=== PATIENT | female | born 1955 | race Caucasian/White ===

== ENCOUNTER 2018-09-24 00:01 | Inpatient (IN) | payer OTHER ==
[2018-09-24 00:04] VITALS: BMI 34.7
[2018-09-24] MEDS ORDERED: Aspirin 325 mg EC Tablets PO STA (00:43)
--- NOTE | 2018-09-24 00:43 | C.PDOC ---
History Of Present Illness 63 year old female presents to the ED c/o diffuse body aches, headache, chest pain that started today. Patient denies fever, chills, nausea, vomit, diarrhea, rash, SOB, weakness, numbness. Time Seen by Provider: 09/24/18 00:42 Chief Complaint (Nursing): Chest Pain History Per: Patient History/Exam Limitations: no limitations Onset/Duration Of Symptoms: Days Current Symptoms Are (Timing): Still Present Quality: "Pain" Recent travel outside of the [place]: No Additional History Per: Patient Past Medical History Reviewed: Historical Data, Nursing Documentation, Vital Signs Vital Signs: Last Vital Signs Temp 98.4 F 09/24/18 00:09 Pulse 96 H 09/24/18 00:09 Resp 16 09/24/18 00:09 BP 138/80 09/24/18 00:09 Pulse Ox 100 09/24/18 00:09 - Medical History PMH: HTN Denies: Depression Surgical History: No Surg Hx - [facility] Procedures INJECT/INFUSE NEC (01/28/14) Family History: States: Unknown Family Hx - Social History Hx Alcohol Use: No Hx Substance Use: No - Immunization History Hx Tetanus Toxoid Vaccination: No Hx Influenza Vaccination: No Hx Pneumococcal Vaccination: No Review Of Systems Constitutional: Positive for: Malaise. Negative for: Fever, Chills Cardiovascular: Positive for: Chest Pain. Negative for: Palpitations Respiratory: Negative for: Cough, Shortness of Breath Gastrointestinal: Negative for: Nausea, Vomiting, Abdominal Pain Skin: Negative for: Rash Neurological: Positive for: Headache. Negative for: Weakness, Numbness, Dizziness Physical Exam - Physical Exam Appears: Non-toxic, No Acute Distress Skin: Warm, Dry Head: Normacephalic Eye(s): bilateral: Normal Inspection Neck: Supple Chest: Symmetrical Cardiovascular: Rhythm Regular Respiratory: No Rales, Rhonchi (scattered), No Wheezing Gastrointestinal/Abdominal: Soft, No Tenderness, No Guarding, No Rebound Extremity: Bilateral: Atraumatic, Normal Color And Temperature, Normal ROM Neurological/Psych: Oriented x3, Normal Speech, Normal Cognition Gait: Steady ED Course And Treatment - Laboratory Results Result Diagrams: 09/24/18 01:05 09/24/18 01:05 ECG: Interpreted By Me, Viewed By Me ECG Rhythm: Sinus Rhythm (88), Nonspecific Changes O2 Sat by Pulse Oximetry: 100 (ON RA) Pulse Ox Interpretation: Normal - Radiology CXR: Interpreted by Me, Viewed By Me Progress Note: Plan: - EKG. - CXR. - Labs. - Aspirin 325 mg PO. - Influenza A B. - UA Disposition Discussed With Dr.: Angelo Block Comment: accepted the pt on his service and took over the care at 5:50 AM Doctor Will See Patient In The: Hospital Counseled Patient/Family Regarding: Studies Performed, Diagnosis - Disposition Disposition: HOSPITALIZED Disposition Time: 05:50 Condition: FAIR Forms: [employer] (Portuguese) - Clinical Impression Clinical Impression: Chest pain - Scribe Statement The provider has reviewed the documentation as recorded by the Scribe Jose Armando Abrams All medical record entries made by the Scribe were at my direction and personally dictated by me. I have reviewed the chart and agree that the record accurately reflects my personal performance of the history, physical exam, medical decision making, and the department course for this patient. I have also personally directed, reviewed, and agree with the discharge instructions and disposition. Decision To Admit - Pt Status Changed To: Hospital Disposition Of: Observation - . Bed Request Type: Telemetry Admitting Physician: Angelo Block Patient Diagnosis: Chest pain
[2018-09-24 01:15] LABS: INR 1.2; PROTHROMBIN TIME 12.7 SECONDS (9.7-12.2)
[2018-09-24 01:16] LABS: BASO # 0.1 K/uL (0.0-0.2); BASO % 0.4 % (0.0-2.0); EOS # 0.1 K/uL (0.0-0.7); EOS % 0.6 % (0.0-4.0); HEMOGLOBIN 12.5 g/dL (11.0-16.0); LYMPH # 1.4 K/uL (1.0-4.3); LYMPH % 11.4 % (20.0-40.0); MEAN CELL VOLUME 82.3 fL (81.0-99.0); MEAN CORPUSCULAR HEMOGLOBIN 27.3 pg (27.0-31.0); MEAN CORPUSCULAR HGB CONC 33.2 g/dL (33.0-37.0); MEAN PLATELET VOLUME 9.7 fL (7.2-11.7); MONO # 0.9 K/uL (0.0-0.8); MONO % 7.5 % (0.0-10.0); NEUT # 9.9 K/uL (1.8-7.0); NEUT % 80.1 % (50.0-75.0); RBC 4.58 Mil/uL (3.80-5.20); RED CELL DISTRIBUTION WIDTH 13.4 % (11.5-14.5); WHITE BLOOD COUNT 12.3 K/uL (4.8-10.8)
[2018-09-24 01:26] LABS: ALB/GLOB RATIO 1.1 (1.0-2.1); ALBUMIN 4.4 g/dL (3.5-5.0); BLOOD UREA NITROGEN 14 mg/dL (7-17); CALCIUM 8.9 mg/dl (8.6-10.4); GFR NON-AFRICAN AMERICAN > 60; LIPASE 25 U/L (23-300)
[2018-09-24 01:38] LABS: B-TYPE NATRIURETIC PEPTIDE 114 pg/mL (0-900)
[2018-09-24 01:46] LABS: ALT/SGPT < 6 U/L (9-52); AST/SGOT 24 U/L (14-36)
[2018-09-24] MEDS: Enoxaparin 40 mg Syringe SC SCH (09:51)
--- NOTE | 2018-09-24 10:55 | RAD ---
Date of service: 09/24/2018 HISTORY: chest pain COMPARISON: None available. FINDINGS: LUNGS: No active pulmonary disease. PLEURA: No significant pleural effusion identified, no pneumothorax apparent. CARDIOVASCULAR: No aortic atherosclerotic calcification present. Cardiomegaly noted. No pulmonary vascular congestion. OSSEOUS STRUCTURES: No significant abnormalities. VISUALIZED UPPER ABDOMEN: Normal. OTHER FINDINGS: None. IMPRESSION: Cardiomegaly. No acute pulmonary disease appreciable. No pulmonary vascular congestion.
[2018-09-24 12:17] LABS: CK-MB < 0.22 ng/mL (0.0-3.38)
[2018-09-24 16:37] LABS: URINE BACTERIA RARE (<OCC); URINE BILIRUBIN NEGATIVE (NEGATIVE); URINE BLOOD NEGATIVE (NEGATIVE); URINE CLARITY Clear (Clear); URINE COLOR Yellow (YELLOW); URINE GLUCOSE (UA) NORMAL (Normal); URINE LEUKOCYTE ESTERASE NEG Leu/uL (Negative); URINE PROTEIN NEGATIVE (NEGATIVE); URINE UROBILINOGEN NORMAL mg/dL (0.2-1.0)
[2018-09-24] MEDS ORDERED: cefTRIAXone IV 1 gm in Dextros 50 ML IVPB ONE (17:00)
[2018-09-24] MEDS: guaiFENesin 600 mg ER Tab PO SCH (17:01)
[2018-09-24] MEDS ORDERED: Azithromycin 500 MG in Sodium Chloride 0.9% 250 ML IVPB ONE (17:30)
--- NOTE | 2018-09-24 19:58 | CP.PCM.HP ---
History of Present Illness - History of Present Illness History of Present Illness: patient presents at the [facility] emergency room complaining of chest pain, headache and cough for the past 6 hours. Patient denies fever or nausea. She completed a full day's work and upon arriving home developed chest pain and headache. patient was evaluated by the emergency room staff and an EKG did not manifest any acute changes. Chest pain and headache persisted and patient was admitted for observation. Troponin levels were ordered and a consult with cardiology was requested. Present on Admission - Present on Admission Any Indicators Present on Admission: No History of DVT/PE: No History of Uncontrolled Diabetes: No Urinary Catheter: No Decubitus Ulcer Present: No History Surgical Site Infection Following: None Review of Systems - Review of Systems Systems not reviewed;Unavailable: Other (chest pain) - Constitutional Constitutional: Headache - Cardiovascular Cardiovascular: Chest Pain - Respiratory Respiratory: Cough - Reproductive: Female Reproductive:Female: Post Menopausal - Integumentary Integumentary: Dry Skin - Neurological Neurological: Headaches Past Patient History - Tetanus Immunizations Tetanus Immunization: Up to Date - Past Social History Smoking Status: Never Smoked Chewing Tobacco Use: No Alcohol: None Drugs: Denies Domestic Violence: Negative - CARDIAC Hx Hypertension: Yes - MUSCULOSKELETAL/RHEUMATOLOGICAL Hx Arthritis: Yes - PSYCHIATRIC Hx Depression: No Hx Substance Use: No Meds Allergies/Adverse Reactions: Allergies Allergy/AdvReac Type Severity Reaction Status Date / Time No Known Allergies Allergy Verified 09/24/18 00:11 Physical Exam - Constitutional Appears: No Acute Distress - Head Exam Head Exam: ATRAUMATIC - Eye Exam Eye Exam: Normal appearance Pupil Exam: NORMAL ACCOMODATION - ENT Exam ENT Exam: Normal Exam - Neck Exam Neck exam: Positive for: Normal Inspection - Respiratory Exam Respiratory Exam: NORMAL BREATHING PATTERN - Cardiovascular Exam Cardiovascular Exam: REGULAR RHYTHM - GI/Abdominal Exam GI & Abdominal Exam: Normal Bowel Sounds - Rectal Exam Rectal Exam: Deferred - Exam External exam: NORMAL EXTERNAL EXAM - Extremities Exam Extremities exam: Positive for: tenderness (left shoulder tenderness) - Back Exam Back exam: NORMAL INSPECTION - Neurological Exam Neurological exam: Oriented x3 - Psychiatric Exam Psychiatric exam: Anxious - Skin Skin Exam: Dry Results - Vital Signs Recent Vital Signs: Last Vital Signs Temp 99.4 F 09/24/18 16:00 Pulse 96 H 09/24/18 17:58 Resp 20 09/24/18 16:00 BP 169/87 H 09/24/18 16:00 Pulse Ox 95 09/24/18 16:00 - Labs Result Diagrams: 09/24/18 01:05 09/24/18 01:05 Labs: Laboratory Results - last 24 hr 09/24/18 09/24/18 09/24/18 01:05 01:05 01:05 WBC 12.3 H RBC 4.58 Hgb 12.5 Hct 37.7 MCV 82.3 MCH 27.3 MCHC 33.2 RDW 13.4 Plt Count 231 MPV 9.7 Neut % (Auto) 80.1 H Lymph % (Auto) 11.4 L [place] % (Auto) 7.5 Eos % (Auto) 0.6 Baso % (Auto) 0.4 Neut # (Auto) 9.9 H Lymph # (Auto) 1.4 [place] # (Auto) 0.9 H Eos # (Auto) 0.1 Baso # (Auto) 0.1 PT 12.7 H INR 1.2 APTT 33 Sodium 135 Potassium 4.2 Chloride 102 Carbon Dioxide 24 Anion Gap 13 BUN 14 Creatinine 0.7 Est GFR ( Amer) > 60 Est GFR (Non-Af Amer) > 60 Random Glucose 112 H Calcium 8.9 Total Bilirubin 0.9 AST 24 ALT < 6 L Alkaline Phosphatase 90 Total Creatine Kinase CK-MB (Mass) Troponin I < 0.0120 NT-Pro-B Natriuret Pep 114 Total Protein 8.3 Albumin 4.4 Globulin 3.9 Albumin/Globulin Ratio 1.1 Lipase 25 Urine Color Urine Clarity Urine pH Ur Specific [place] Urine Protein Urine Glucose (UA) Urine Ketones Urine Blood Urine Nitrate Urine Bilirubin Urine Urobilinogen Ur Leukocyte Esterase Urine WBC (Auto) Urine RBC (Auto) Urine Bacteria Influenza Typ A,B (EIA) 09/24/18 09/24/18 09/24/18 01:10 04:45 11:33 WBC RBC Hgb Hct MCV MCH MCHC RDW Plt Count MPV Neut % (Auto) Lymph % (Auto) [place] % (Auto) Eos % (Auto) Baso % (Auto) Neut # (Auto) Lymph # (Auto) [place] # (Auto) Eos # (Auto) Baso # (Auto) PT INR APTT Sodium Potassium Chloride Carbon Dioxide Anion Gap BUN Creatinine Est GFR ( Amer) Est GFR (Non-Af Amer) Random Glucose Calcium Total Bilirubin AST ALT Alkaline Phosphatase Total Creatine Kinase 39 CK-MB (Mass) < 0.22 Troponin I < 0.0120 < 0.0120 NT-Pro-B Natriuret Pep Total Protein Albumin Globulin Albumin/Globulin Ratio Lipase Urine Color Urine Clarity Urine pH Ur Specific [place] Urine Protein Urine Glucose (UA) Urine Ketones Urine Blood Urine Nitrate Urine Bilirubin Urine Urobilinogen Ur Leukocyte Esterase Urine WBC (Auto) Urine RBC (Auto) Urine Bacteria Influenza Typ A,B (EIA) Negative for flu a/b 09/24/18 09/24/18 14:13 16:30 WBC RBC Hgb Hct MCV MCH MCHC RDW Plt Count MPV Neut % (Auto) Lymph % (Auto) [place] % (Auto) Eos % (Auto) Baso % (Auto) Neut # (Auto) Lymph # (Auto) [place] # (Auto) Eos # (Auto) Baso # (Auto) PT INR APTT Sodium Potassium Chloride Carbon Dioxide Anion Gap BUN Creatinine Est GFR ( Amer) Est GFR (Non-Af Amer) Random Glucose Calcium Total Bilirubin AST ALT Alkaline Phosphatase Total Creatine Kinase CK-MB (Mass) Troponin I < 0.0120 NT-Pro-B Natriuret Pep Total Protein Albumin Globulin Albumin/Globulin Ratio Lipase Urine Color Yellow Urine Clarity Clear Urine pH 5.0 Ur Specific [place] 1.017 Urine Protein Negative Urine Glucose (UA) Normal Urine Ketones Negative Urine Blood Negative Urine Nitrate Negative Urine Bilirubin Negative Urine Urobilinogen Normal Ur Leukocyte Esterase Neg Urine WBC (Auto) < 1 Urine RBC (Auto) 1 Urine Bacteria Rare Influenza Typ A,B (EIA) Assessment & Plan (1) Cough Status: Acute (2) Migraine Status: Acute (3) Chest pain Status: Acute (4) Bursitis of left shoulder Status: Acute
[2018-09-25] MEDS: Albuterol-Ipratrop 3 mg / 0.5 (3 ml) UD INH SCH ×4 (01:44→19:24)
[2018-09-25] MEDS: guaiFENesin 600 mg ER Tab PO SCH ×2 (05:53→17:45)
[2018-09-25 08:55] LABS: BASO % 0.3 % (0.0-2.0); EOS % 0.2 % (0.0-4.0); LYMPH # 2.2 K/uL (1.0-4.3); LYMPH % 26.2 % (20.0-40.0); MEAN CELL VOLUME 82.2 fL (81.0-99.0); MEAN CORPUSCULAR HEMOGLOBIN 27.1 pg (27.0-31.0); MEAN PLATELET VOLUME 9.4 fL (7.2-11.7); MONO % 12.4 % (0.0-10.0); NEUT # 5.1 K/uL (1.8-7.0); NEUT % 60.9 % (50.0-75.0); RBC 4.44 Mil/uL (3.80-5.20); RED CELL DISTRIBUTION WIDTH 13.3 % (11.5-14.5); WHITE BLOOD COUNT 8.3 K/uL (4.8-10.8)
[2018-09-25] MEDS: Metoprolol Succinate 25 mg XL Tab PO SCH (09:10)
[2018-09-25] MEDS: Enoxaparin 40 mg Syringe SC SCH (09:10)
[2018-09-25 09:12] LABS: ALB/GLOB RATIO 1.2 (1.0-2.1); ALBUMIN 4.1 g/dL (3.5-5.0); ALT/SGPT 12 U/L (9-52); AST/SGOT 18 U/L (14-36); BLOOD UREA NITROGEN 9 mg/dL (7-17); CALCIUM 8.7 mg/dl (8.6-10.4); GFR NON-AFRICAN AMERICAN > 60
[2018-09-25] MEDS: Piperacillin/Tazobact 3.375 GM in Sodium Chloride 100 ML IVPB SCH ×3 (10:32→22:18)
[2018-09-25] MEDS: MethylPREDNISolone 40 mg Vial IVP SCH ×2 (10:32→17:46)
[2018-09-25] MEDS ORDERED: Potassium Chloride 10 mEq ER Tab PO ONE (12:45)
--- NOTE | 2018-09-25 16:03 | CP.PCM.CON ---
History of Present Illness - History of Present Illness History of Present Illness: 63 years old Female complaining of a cough, headache and anterior chest burning yesterday. Patient is known to have a hypertension. She denies any fever, SOB, nausea, palpitation. CXR : WNL ECG x 2: RSR, WNL. TNI x3: WNL. Patient was started on Zosyn, Solumedrol with improvement of headache, chest pain. Review of Systems - Constitutional Constitutional: Headache - Cardiovascular Cardiovascular: Chest Pain - Respiratory Respiratory: Cough, Dyspnea Past Patient History - Tetanus Immunizations Tetanus Immunization: Up to Date - Past Social History Smoking Status: Never Smoked Chewing Tobacco Use: No Alcohol: None Drugs: Denies Domestic Violence: Negative - CARDIAC Hx Hypertension: Yes - MUSCULOSKELETAL/RHEUMATOLOGICAL Hx Arthritis: Yes - PSYCHIATRIC Hx Depression: No Hx Substance Use: No Meds Allergies/Adverse Reactions: Allergies Allergy/AdvReac Type Severity Reaction Status Date / Time No Known Allergies Allergy Verified 09/24/18 00:11 - Medications Medications: Current Medications Acetaminophen (Tylenol 325mg Tab) 650 mg PO Q6 PRN PRN Reason: Headache Last Admin: 09/25/18 08:24 Dose: 650 mg Albuterol/Ipratropium (Duoneb 3 Mg/0.5 Mg (3 Ml) Ud) 3 ml INH RQ6 [facility] Last Admin: 09/25/18 15:10 Dose: Not Given Azithromycin (Zithromax) 500 mg PO DAILY [facility]; Protocol Last Admin: 09/25/18 10:32 Dose: 500 mg Enoxaparin Sodium (Lovenox) 40 mg SC DAILY [facility] Last Admin: 09/25/18 09:10 Dose: 40 mg Fluticasone Propionate (Flonase) 1 spr NS BID [facility] Guaifenesin (Mucinex La) 600 mg PO Q12H [facility] Last Admin: 09/25/18 05:53 Dose: 600 mg Piperacillin Sod/Tazobactam (Sod 3.375 gm/ Sodium Chloride) 100 mls @ 200 mls/hr IVPB Q6H [facility]; Protocol Last Admin: 09/25/18 10:32 Dose: 200 mls/hr Influenza Virus Vaccine (Flucelvax Quad 9133-3771 Syr) 60 mcg IM .ONCE ONE Stop: 09/26/18 10:01 Methylprednisolone (Solu-Medrol) 40 mg IVP BID [facility] Last Admin: 02/10/19 10:32 Dose: 40 mg Metoprolol Succinate (Toprol Xl) 25 mg PO DAILY [facility] Last Admin: 09/25/18 09:10 Dose: 25 mg Pneumococcal Polyvalent Vaccine (Pneumovax 23 Vaccine) 0.5 ml IM .ONCE ONE Stop: 09/26/18 10:01 Potassium Chloride (K-Dur 20 Meq Er Tab) 20 meq PO DAILY [facility] Physical Exam - Constitutional Appears: Well, No Acute Distress - Head Exam Head Exam: NORMAL INSPECTION - Eye Exam Eye Exam: Normal appearance Pupil Exam: NORMAL ACCOMODATION - ENT Exam ENT Exam: Normal Exam - Neck Exam Neck exam: Positive for: Normal Inspection - Respiratory Exam Respiratory Exam: Clear to Auscultation Bilateral, NORMAL BREATHING PATTERN - Cardiovascular Exam Cardiovascular Exam: REGULAR RHYTHM - GI/Abdominal Exam GI & Abdominal Exam: Normal Bowel Sounds, Soft - Rectal Exam Rectal Exam: Deferred - Exam Exam: NORMAL INSPECTION - Extremities Exam Extremities exam: Positive for: normal inspection - Back Exam Back exam: NORMAL INSPECTION - Neurological Exam Neurological exam: Alert, CN II-XII Intact, Oriented x3, Reflexes Normal - Psychiatric Exam Psychiatric exam: Anxious - Skin Skin Exam: Dry, Intact, Normal Color, Warm Results - Vital Signs Recent Vital Signs: Last Vital Signs Temp 99.3 F 09/25/18 07:00 Pulse 58 L 09/25/18 11:23 Resp 20 09/25/18 07:00 BP 124/78 09/25/18 13:38 Pulse Ox 95 09/25/18 12:01 - Labs Result Diagrams: 09/25/18 08:48 09/25/18 08:48 Labs: Laboratory Results - last 24 hr 09/24/18 09/25/18 09/25/18 16:30 08:48 08:48 WBC 8.3 RBC 4.44 Hgb 12.0 Hct 36.5 MCV 82.2 MCH 27.1 MCHC 33.0 RDW 13.3 Plt Count 193 MPV 9.4 Neut % (Auto) 60.9 Lymph % (Auto) 26.2 [place] % (Auto) 12.4 H Eos % (Auto) 0.2 Baso % (Auto) 0.3 Neut # (Auto) 5.1 Lymph # (Auto) 2.2 [place] # (Auto) 1.0 H Eos # (Auto) 0.0 Baso # (Auto) 0.0 Sodium 134 Potassium 3.4 L Chloride 100 Carbon Dioxide 28 Anion Gap 9 L BUN 9 Creatinine 0.8 Est GFR ( Amer) > 60 Est GFR (Non-Af Amer) > 60 Random Glucose 117 H Calcium 8.7 Total Bilirubin 0.5 AST 18 ALT 12 Alkaline Phosphatase 84 Total Protein 7.7 Albumin 4.1 Globulin 3.5 Albumin/Globulin Ratio 1.2 Urine Color Yellow Urine Clarity Clear Urine pH 5.0 Ur Specific [place] 1.017 Urine Protein Negative Urine Glucose (UA) Normal Urine Ketones Negative Urine Blood Negative Urine Nitrate Negative Urine Bilirubin Negative Urine Urobilinogen Normal Ur Leukocyte Esterase Neg Urine WBC (Auto) < 1 Urine RBC (Auto) 1 Urine Bacteria Rare Assessment & Plan (1) Cough Status: Acute (2) Chest pain Assessment and Plan: Serial ECG 's and TNI's were normal. Will order an echo. Status: Acute
--- NOTE | 2018-09-25 16:14 | CT ---
Date of service: 09/24/2018 PROCEDURE: CT HEAD WITHOUT CONTRAST. HISTORY: HEADACHE COMPARISON: None available. TECHNIQUE: Axial computed tomography images were obtained through the head/brain without intravenous contrast. Radiation dose: Total exam DLP = 1097.72 mGy-cm. This CT exam was performed using one or more of the following dose reduction techniques: Automated exposure control, adjustment of the mA and/or kV according to patient size, and/or use of iterative reconstruction technique. FINDINGS: HEMORRHAGE: No intracranial hemorrhage. BRAIN: A sub cm lucency seen at the region of the body of the corpus callosum. Follow-up MRI is advised without contrast for added characterization. This is not a typical finding for chronic microangiopathy with remaining white matter unremarkable this patient in fact. Otherwise, density in the cortex and medullary parenchyma of the supra and infratentorial compartments as well as throughout the brainstem is unremarkable. There is no mass effect. No suspicious extra-axial fluid collection. Sulci and cisterns are unremarkable as well as the ventricular system. VENTRICLES: Unremarkable. No hydrocephalus. CALVARIUM: Unremarkable. PARANASAL SINUSES: Unremarkable as visualized. No significant inflammatory changes. MASTOID AIR CELLS: Unremarkable as visualized. No inflammatory changes. OTHER FINDINGS: None. IMPRESSION: A sub cm lucency seen at the corpus callosum for which follow-up MRI with and without contrast is advised for added characterization. Examination otherwise unremarkable.
[2018-09-25] MEDS: Fluticasone Nasal 50 mcg/Spray NS SCH (17:46)
--- NOTE | 2018-09-25 19:05 | CP.PCM.PN ---
Subjective - Date & Time of Evaluation Date of Evaluation: 09/25/18 Time of Evaluation: 17:05 - Subjective Subjective: patient feels better with O2 by nasal cannula. Chest pain less intense. Chest x-ray demonstrates cardiomegaly. CT scan of the brain manifests a lucency. Radiology suggests MRI of the brain. Dr. Caputo evaluated the patient and requests an echocardiogram. continue present supportive measures. Objective - Vital Signs/Intake and Output Vital Signs (last 24 hours): Temp Pulse Resp BP Pulse Ox 98.3 F 65 18 130/75 95 09/25/18 16:02 09/25/18 16:02 09/25/18 16:02 09/25/18 16:02 09/25/18 16:02 Intake and Output: 09/25/18 09/26/18 18:59 06:59 Intake Total 100 Balance 100 - Medications Medications: Current Medications Acetaminophen (Tylenol 325mg Tab) 650 mg PO Q6 PRN PRN Reason: Headache Last Admin: 09/25/18 08:24 Dose: 650 mg Albuterol/Ipratropium (Duoneb 3 Mg/0.5 Mg (3 Ml) Ud) 3 ml INH RQ6 [facility] Last Admin: 09/25/18 15:10 Dose: Not Given Azithromycin (Zithromax) 500 mg PO DAILY [facility]; Protocol Last Admin: 09/25/18 10:32 Dose: 500 mg Enoxaparin Sodium (Lovenox) 40 mg SC DAILY [facility] Last Admin: 09/25/18 09:10 Dose: 40 mg Fluticasone Propionate (Flonase) 1 spr NS BID [facility] Last Admin: 09/25/18 17:46 Dose: 1 spr Guaifenesin (Mucinex La) 600 mg PO Q12H [facility] Last Admin: 09/25/18 17:45 Dose: 600 mg Piperacillin Sod/Tazobactam (Sod 3.375 gm/ Sodium Chloride) 100 mls @ 200 mls/hr IVPB Q6H [facility]; Protocol Last Admin: 09/25/18 16:31 Dose: 200 mls/hr Influenza Virus Vaccine (Flucelvax Quad 5872-5740 Syr) 60 mcg IM .ONCE ONE Stop: 09/26/18 10:01 Methylprednisolone (Solu-Medrol) 40 mg IVP BID [facility] Last Admin: 09/25/18 17:46 Dose: 40 mg Metoprolol Succinate (Toprol Xl) 25 mg PO DAILY [facility] Last Admin: 09/25/18 09:10 Dose: 25 mg Pneumococcal Polyvalent Vaccine (Pneumovax 23 Vaccine) 0.5 ml IM .ONCE ONE Stop: 09/26/18 10:01 Potassium Chloride (K-Dur 20 Meq Er Tab) 20 meq PO DAILY [facility] - Labs Labs: 09/25/18 08:48 09/25/18 08:48 PT 12.7 SECONDS (9.7-12.2) H 09/24/18 01:05 INR 1.2 09/24/18 01:05 APTT 33 SECONDS (21-34) 09/24/18 01:05 - Constitutional Appears: Chronically Ill - Head Exam Head Exam: NORMOCEPHALIC - Eye Exam Eye Exam: Normal appearance Pupil Exam: NORMAL ACCOMODATION - ENT Exam ENT Exam: Normal Exam - Neck Exam Neck Exam: Normal Inspection - Respiratory Exam Respiratory Exam: NORMAL BREATHING PATTERN - Cardiovascular Exam Cardiovascular Exam: REGULAR RHYTHM - GI/Abdominal Exam GI & Abdominal Exam: Normal Bowel Sounds - Rectal Exam Rectal Exam: Deferred - Exam External exam: NORMAL EXTERNAL EXAM - Extremities Exam Extremities Exam: Normal Inspection - Back Exam Back Exam: NORMAL INSPECTION - Neurological Exam Neurological Exam: Oriented x3 - Skin Skin Exam: Dry Assessment and Plan (1) Cough Status: Acute (2) Migraine Status: Acute (3) Chest pain Status: Acute (4) Bursitis of left shoulder Status: Acute (5) Cardiomegaly Status: Acute
[2018-09-26] MEDS: Albuterol-Ipratrop 3 mg / 0.5 (3 ml) UD INH SCH ×4 (01:27→19:15)
[2018-09-26] MEDS: Piperacillin/Tazobact 3.375 GM in Sodium Chloride 100 ML IVPB SCH ×4 (04:14→22:29)
[2018-09-26] MEDS: guaiFENesin 600 mg ER Tab PO SCH ×2 (05:12→17:57)
[2018-09-26] MEDS ORDERED: Influenza Vaccine 60 mcg/0.5 mL SYR (4YR UP) IM ONE (10:00)
[2018-09-26] MEDS ORDERED: Pneumococcal 23-Valent Vaccine IM ONE (10:00)
[2018-09-26] MEDS: MethylPREDNISolone 40 mg Vial IVP SCH ×2 (10:22→17:57)
[2018-09-26] MEDS: Potassium Chloride 20 mEq ER Tab PO SCH (10:22)
[2018-09-26] MEDS: Fluticasone Nasal 50 mcg/Spray NS SCH ×2 (10:22→17:57)
[2018-09-26] MEDS: Enoxaparin 40 mg Syringe SC SCH (10:22)
[2018-09-26] MEDS: Metoprolol Succinate 25 mg XL Tab PO SCH (10:22)
[2018-09-26] MEDS ORDERED: Gadodiamide 287 mg/ml 20 ml IV ONE (11:57)
--- NOTE | 2018-09-26 11:58 | CT ---
Date of service: 09/26/2018 CT chest without IV contrast Indication: chest pain, shortness of breath Technique: Contiguous axial images were obtained through the chest without intravenous contrast enhancement. Sagittal and coronal reconstructions were generated and reviewed. This CT exam was performed using 1 or more of the following dose reduction techniques: Automated exposure control, adjustment of the MAA and/or kV according to patient size, and/or use of iterative reconstruction technique. Radiation dose (DLP): 891.12 MGy-cm. Comparison: None available Findings: Visualized portions of the inferior thyroid gland appear unremarkable. The unenhanced mediastinal and hilar vascular structures appear grossly unremarkable. Mild cardiomegaly. Trace pericardial fluid. Nodular somewhat ground-glass opacities in the right middle lobe in region of atelectasis/pneumonia. 5 x 10 mm nodular opacity at the right lung base (series 4, image 74). 3 mm right lung base nodule (series 4, image 82). No pleural effusion. No pneumothorax. Small hiatal hernia/distal esophageal wall thickening. Limited visualization of the noncontrast upper abdomen: 4.4 cm right upper pole cyst. Degenerative changes of the spine. Impression: Nodular somewhat ground-glass opacities in the right middle lobe in region of atelectasis/pneumonia. Additional right base 5 x 10 mm and 3 mm nodules. Recommend follow-up chest CT at 3 months. Mild cardiomegaly. Trace pericardial fluid. Small hiatal hernia/distal esophageal wall thickening. 4.4 cm right upper pole cyst.
--- NOTE | 2018-09-26 13:28 | MRI ---
Date of service: 09/26/2018 PROCEDURE: MRI BRAIN WITH AND WITHOUT CONTRAST HISTORY: Lucency on CT scan COMPARISON: Noncontrast head CT from 09/24/2028. TECHNIQUE: Multiplanar, multisequence MR images of the brain were obtained with and without intravenous contrast enhancement. 19 mL Omniscan was injected intravenously. FINDINGS: HEMORRHAGE: None DWI: No evidence of an acute or early subacute infarction. BRAIN PARENCHYMA: There are mild chronic microangiopathic changes. There is no mass, mass effect or abnormal extra-axial fluid collection. There is no territorial infarction. The midline sagittal structures are normal. ENHANCEMENT: No abnormal intracranial enhancement. VENTRICLES: There is mild age-related global parenchymal volume loss and proportionate enlargement of the ventricles and cortical sulci. There is a cavum vergae. There is a nakul cisterna magna. CRANIUM: There is normal bone marrow signal pattern. ORBITS: Grossly unremarkable. PARANASAL SINUSES/MASTOIDS: There is mild mucosal thickening in the paranasal sinuses. The mastoid air cells are clear P VASCULAR SYSTEM: There are normal signal voids in the larger intracranial arteries. OTHER FINDINGS: None . IMPRESSION: No acute intracranial abnormality. Specifically, no abnormality in the body of the corpus callosum. Mild chronic microangiopathic changes and mild age-related global parenchymal volume loss.
--- NOTE | 2018-09-26 14:17 | CARD ---
APPROVED REPORT Date of service: 09/24/2018 EKG Measurement Heart [id number] <Conclusion> Normal sinus rhythm Normal ECG
--- NOTE | 2018-09-26 14:18 | CARD ---
APPROVED REPORT Date of service: 09/24/2018 EKG Measurement Heart [id number] <Conclusion> Normal sinus rhythm Normal ECG
--- NOTE | 2018-09-26 14:50 | CARD ---
APPROVED REPORT Date of service: 09/26/2018 EXAM: Two-dimensional and M-mode echocardiogram with Doppler and color Doppler. INDICATION Chest Pain 2D DIMENSIONS IVSd1.1 (0.7-1.1cm)LVDd4.9 (3.9-5.9cm) PWd1.2 (0.7-1.1cm)LA Lvmlfc35 (18-58mL) LVDs2.4 (2.5-4.0cm)FS (%) 50.2 % LVEF (%)70.0 (>50%)LVEF (Macario's)69.15 % M-Mode DIMENSIONS Left Atrium (MM)4.08 (2.5-4.0cm)IVSd0.87 (0.7-1.1cm) Aortic Root3.89 (2.2-3.7cm)LVDd5.81 (4.0-5.6cm) Aortic Cusp Exc.2.64 (1.5-2.0cm)PWd0.91 (0.7-1.1cm) FS (%) 43 %LVDs3.32 (2.0-3.8cm) LVEF (%)73 (>50%) Mitral Valve MV E Nzghdgrp14.1cm/sMV A Ozxsifcu27.8cm/sE/A ratio1.0 TDI Lateral E' Peak V9.97cm/sMedial E' Peak V4.80cm/sE/Lateral E'6.2 E/Medial E'12.9 LEFT VENTRICLE The left ventricle is normal size. There is borderline concentric left ventricular hypertrophy. The Ejection Fraction is 65-70%. There is normal LV segmental wall motion. The left ventricular diastolic function is normal. RIGHT VENTRICLE The right ventricle is normal size. The right ventricular systolic function is normal. ATRIA The left atrium is mildly dilated. The right atrium size is normal. The interatrial septum is intact with no evidence for an atrial septal defect. AORTIC VALVE The aortic valve is normal in structure. There is trace aortic regurgitation. MITRAL VALVE The mitral valve is normal in structure. There is no mitral valve regurgitation noted. TRICUSPID VALVE The tricuspid valve is normal in structure. There is no tricuspid valve regurgitation noted. PULMONIC VALVE The pulmonary valve is normal in structure. There is trace pulmonic valvular regurgitation. GREAT VESSELS The aortic root is normal in size. The IVC is normal in size and collapses >50% with inspiration. PERICARDIAL EFFUSION There is no pericardial effusion. <Conclusion> The left ventricle is normal size. There is borderline concentric left ventricular hypertrophy. The Ejection Fraction is 65-70%. The left ventricular diastolic function is normal. The left atrium is mildly dilated. There is trace aortic regurgitation. The aortic root is normal in size. The IVC is normal in size and collapses >50% with inspiration. There is no pericardial effusion.
--- NOTE | 2018-09-26 22:52 | CP.PCM.PN ---
Subjective - Date & Time of Evaluation Date of Evaluation: 09/26/18 Time of Evaluation: 19:00 - Subjective Subjective: Patient feels better, with no more chest pain. Afebrile, in no respiratory distress. Head MRI: ischemic change. CT scan of the chest: infiltrate at the right middle lobe. Echocardiogram: normal LV wall motion. Minimal AI, PI and trace pericardial effusion. Objective - Vital Signs/Intake and Output Vital Signs (last 24 hours): Temp Pulse Resp BP Pulse Ox 97.6 F 62 20 137/79 95 09/26/18 15:00 09/26/18 16:00 09/26/18 15:00 09/26/18 15:00 09/26/18 15:00 Intake and Output: 09/26/18 09/27/18 18:59 06:59 Intake Total 900 Balance 900 - Medications Medications: Current Medications Acetaminophen (Tylenol 325mg Tab) 650 mg PO Q6 PRN PRN Reason: Headache Last Admin: 09/25/18 08:24 Dose: 650 mg Albuterol/Ipratropium (Duoneb 3 Mg/0.5 Mg (3 Ml) Ud) 3 ml INH RQ6 [facility] Last Admin: 09/26/18 19:15 Dose: 3 ml Azithromycin (Zithromax) 500 mg PO DAILY [facility]; Protocol Last Admin: 09/26/18 10:22 Dose: 500 mg Enoxaparin Sodium (Lovenox) 40 mg SC DAILY [facility] Last Admin: 09/26/18 10:22 Dose: 40 mg Fluticasone Propionate (Flonase) 1 spr NS BID [facility] Last Admin: 09/26/18 17:57 Dose: 1 spr Guaifenesin (Mucinex La) 600 mg PO Q12H [facility] Last Admin: 09/26/18 17:57 Dose: 600 mg Piperacillin Sod/Tazobactam (Sod 3.375 gm/ Sodium Chloride) 100 mls @ 200 mls/hr IVPB Q6H [facility]; Protocol Last Admin: 09/26/18 22:29 Dose: 200 mls/hr Methylprednisolone (Solu-Medrol) 40 mg IVP BID [facility] Last Admin: 09/26/18 17:57 Dose: 40 mg Metoprolol Succinate (Toprol Xl) 25 mg PO DAILY [facility] Last Admin: 09/26/18 10:22 Dose: 25 mg Potassium Chloride (K-Dur 20 Meq Er Tab) 20 meq PO DAILY [facility] Last Admin: 09/26/18 10:22 Dose: 20 meq - Labs Labs: 09/25/18 08:48 09/25/18 08:48 PT 12.7 SECONDS (9.7-12.2) H 09/24/18 01:05 INR 1.2 09/24/18 01:05 APTT 33 SECONDS (21-34) 09/24/18 01:05 - Constitutional Appears: Well, No Acute Distress - Head Exam Head Exam: NORMAL INSPECTION - Eye Exam Eye Exam: Normal appearance - ENT Exam ENT Exam: Normal Exam - Neck Exam Neck Exam: Normal Inspection - Respiratory Exam Respiratory Exam: Clear to Ausculation Bilateral - Cardiovascular Exam Cardiovascular Exam: REGULAR RHYTHM - GI/Abdominal Exam GI & Abdominal Exam: Soft, Normal Bowel Sounds - Rectal Exam Rectal Exam: Deferred - Extremities Exam Extremities Exam: Normal Inspection - Back Exam Back Exam: NORMAL INSPECTION - Neurological Exam Neurological Exam: Alert, Awake, Oriented x3 - Psychiatric Exam Psychiatric exam: Anxious - Skin Skin Exam: Dry, Intact, Normal Color, Warm Assessment and Plan (1) Cough Assessment & Plan: RML pneumonia, on IV antibiotics. Status: Acute (2) Chest pain Assessment & Plan: Probably musculo-skeletal in origin. Status: Acute
--- NOTE | 2018-09-26 23:49 | CP.PCM.PN ---
Subjective - Date & Time of Evaluation Date of Evaluation: 09/26/18 Time of Evaluation: 12:05 - Subjective Subjective: patient feels better. She has less lung congestion and less headache. Patient had MRI OF THE BRAIN today with no significant findings. CT of the chest reveals pneumonitis and multiple small polyps. Continue antibiotic ther apy. Objective - Vital Signs/Intake and Output Vital Signs (last 24 hours): Temp Pulse Resp BP Pulse Ox 97.6 F 62 20 137/79 95 09/26/18 15:00 09/26/18 16:00 09/26/18 15:00 09/26/18 15:00 09/26/18 15:00 Intake and Output: 09/26/18 09/27/18 18:59 06:59 Intake Total 900 Balance 900 - Medications Medications: Current Medications Acetaminophen (Tylenol 325mg Tab) 650 mg PO Q6 PRN PRN Reason: Headache Last Admin: 09/25/18 08:24 Dose: 650 mg Albuterol/Ipratropium (Duoneb 3 Mg/0.5 Mg (3 Ml) Ud) 3 ml INH RQ6 [facility] Last Admin: 09/26/18 19:15 Dose: 3 ml Azithromycin (Zithromax) 500 mg PO DAILY [facility]; Protocol Last Admin: 09/26/18 10:22 Dose: 500 mg Enoxaparin Sodium (Lovenox) 40 mg SC DAILY [facility] Last Admin: 09/26/18 10:22 Dose: 40 mg Fluticasone Propionate (Flonase) 1 spr NS BID [facility] Last Admin: 09/26/18 17:57 Dose: 1 spr Guaifenesin (Mucinex La) 600 mg PO Q12H [facility] Last Admin: 09/26/18 17:57 Dose: 600 mg Piperacillin Sod/Tazobactam (Sod 3.375 gm/ Sodium Chloride) 100 mls @ 200 mls/hr IVPB Q6H [facility]; Protocol Last Admin: 09/26/18 22:29 Dose: 200 mls/hr Methylprednisolone (Solu-Medrol) 40 mg IVP BID [facility] Last Admin: 09/26/18 17:57 Dose: 40 mg Metoprolol Succinate (Toprol Xl) 25 mg PO DAILY [facility] Last Admin: 09/26/18 10:22 Dose: 25 mg Potassium Chloride (K-Dur 20 Meq Er Tab) 20 meq PO DAILY [facility] Last Admin: 09/26/18 10:22 Dose: 20 meq - Labs Labs: 09/25/18 08:48 09/25/18 08:48 PT 12.7 SECONDS (9.7-12.2) H 09/24/18 01:05 INR 1.2 09/24/18 01:05 APTT 33 SECONDS (21-34) 09/24/18 01:05 - Constitutional Appears: No Acute Distress - Head Exam Head Exam: NORMOCEPHALIC - Eye Exam Eye Exam: Normal appearance - ENT Exam ENT Exam: Normal Exam - Neck Exam Neck Exam: Normal Inspection - Respiratory Exam Respiratory Exam: Decreased Breath Sounds - Cardiovascular Exam Cardiovascular Exam: REGULAR RHYTHM - GI/Abdominal Exam GI & Abdominal Exam: Normal Bowel Sounds - Rectal Exam Rectal Exam: Deferred - Exam Speculum exam: NORMAL SPECULUM EXAM - Back Exam Back Exam: NORMAL INSPECTION - Neurological Exam Neurological Exam: Oriented x3 - Psychiatric Exam Psychiatric exam: Depressed - Skin Skin Exam: Dry Assessment and Plan (1) Cough Status: Acute (2) Migraine Status: Acute (3) Chest pain Status: Acute (4) Bursitis of left shoulder Status: Acute (5) Cardiomegaly Status: Acute (6) Multiple lung nodules Status: Acute (7) Pneumonitis Status: Acute
[2018-09-27] MEDS: Albuterol-Ipratrop 3 mg / 0.5 (3 ml) UD INH SCH ×3 (01:17→13:35)
[2018-09-27] MEDS: guaiFENesin 600 mg ER Tab PO SCH (05:31)
[2018-09-27] MEDS: Piperacillin/Tazobact 3.375 GM in Sodium Chloride 100 ML IVPB SCH ×2 (05:31→11:55)
[2018-09-27] MEDS: Metoprolol Succinate 25 mg XL Tab PO SCH ×2 (08:47→11:56)
[2018-09-27] MEDS: Enoxaparin 40 mg Syringe SC SCH (11:55)
[2018-09-27] MEDS: Fluticasone Nasal 50 mcg/Spray NS SCH (11:55)
[2018-09-27] MEDS: Potassium Chloride 20 mEq ER Tab PO SCH (11:55)
[2018-09-27] MEDS: MethylPREDNISolone 40 mg Vial IVP SCH (11:55)
--- NOTE | 2018-09-27 15:09 | CP.PCM.PN ---
Subjective - Date & Time of Evaluation Date of Evaluation: 09/27/18 Time of Evaluation: 15:09 - Subjective Subjective: PATIENT SEEN AND EXAMINED AT THE BEDSIDE Objective - Vital Signs/Intake and Output Vital Signs (last 24 hours): Temp Pulse Resp BP Pulse Ox 98.6 F 65 20 154/94 H 97 09/27/18 07:00 09/27/18 08:49 09/27/18 07:00 09/27/18 08:49 09/27/18 07:00 - Medications Medications: Current Medications Acetaminophen (Tylenol 325mg Tab) 650 mg PO Q6 PRN PRN Reason: Headache Last Admin: 09/25/18 08:24 Dose: 650 mg Albuterol/Ipratropium (Duoneb 3 Mg/0.5 Mg (3 Ml) Ud) 3 ml INH RQ6 [facility] Last Admin: 09/27/18 13:35 Dose: 3 ml Azithromycin (Zithromax) 500 mg PO DAILY [facility]; Protocol Last Admin: 09/27/18 11:55 Dose: 500 mg Enoxaparin Sodium (Lovenox) 40 mg SC DAILY [facility] Last Admin: 09/27/18 11:55 Dose: 40 mg Fluticasone Propionate (Flonase) 1 spr NS BID [facility] Last Admin: 09/27/18 11:55 Dose: 1 spr Guaifenesin (Mucinex La) 600 mg PO Q12H [facility] Last Admin: 09/27/18 05:31 Dose: 600 mg Piperacillin Sod/Tazobactam (Sod 3.375 gm/ Sodium Chloride) 100 mls @ 200 mls/hr IVPB Q6H [facility]; Protocol Last Admin: 09/27/18 11:55 Dose: 200 mls/hr Methylprednisolone (Solu-Medrol) 40 mg IVP BID [facility] Last Admin: 09/27/18 11:55 Dose: 40 mg Metoprolol Succinate (Toprol Xl) 25 mg PO DAILY [facility] Last Admin: 09/27/18 11:56 Dose: Not Given Potassium Chloride (K-Dur 20 Meq Er Tab) 20 meq PO DAILY [facility] Last Admin: 09/27/18 11:55 Dose: 20 meq - Labs Labs: 09/25/18 08:48 09/25/18 08:48 PT 12.7 SECONDS (9.7-12.2) H 09/24/18 01:05 INR 1.2 09/24/18 01:05 APTT 33 SECONDS (21-34) 09/24/18 01:05 Assessment and Plan - Assessment and Plan (Free Text) Assessment: FOLLOW UP WITH DR RUIZ IN HIS OFFICE -----CALL FOR APPOINTMENT FOLLOW UP WITH DR HODGE IN HIS OFFICE -----CALL FOR APPOINTMENT FOLLOW UP WITH DR CHRISTIANSEN IN HIS OFFICE -----CALL FOR APPOITMEMNT CONTINUE HOME MEDICATION NEW PRESCRIPTION GIVEN TROPOL XL 25 MG PO DAILY [facility] DIRECTED MEDROL DOSE PACK INSTRUCTED FLONASE ACTIVITY TOLERATED CALL DR RUIZ OR GO TO THE EMERGENCY ROOM IF SYMPTOM RETURN OR WORSENING
[2018-09-27 15:46] VITALS: BP 145/74; PULSE 71; RESP 18; TEMP 99; O2SAT 96
--- NOTE | 2018-09-27 22:19 | CP.PCM.DIS ---
Provider - Provider Date of Admission: 09/26/18 15:05 Attending physician: Angelo Ruiz MD Consults: 09/24/18 09:24 Physician Consult Routine Comment: Consulting Provider: Yann Caputo Consulting Physician: Yann Caputo Reason for Consult: chest pain 09/24/18 19:23 Physician Consult Routine Comment: Consulting Provider: Rolly Pitts Consulting Physician: Rolly Pitts Reason for Consult: congestion Time Spent in preparation of Discharge (in minutes): 24 Diagnosis - Discharge Diagnosis (1) Cough Status: Acute (2) Migraine Status: Acute (3) Chest pain Status: Acute (4) Bursitis of left shoulder Status: Acute (5) Cardiomegaly Status: Acute (6) Multiple lung nodules Status: Acute (7) Pneumonitis Status: Acute Hospital Course - Lab Results Lab Results: Micro Results 09/25/18 13:30 Sputum Gram Stain - Final 09/25/18 13:30 Sputum Sputum Culture - Final NORMAL ORAL [place] Most Recent Lab Values WBC 8.3 K/uL (4.8-10.8) 09/25/18 08:48 RBC 4.44 Mil/uL (3.80-5.20) 09/25/18 08:48 Hgb 12.0 g/dL (11.0-16.0) 09/25/18 08:48 Hct 36.5 % (34.0-47.0) 09/25/18 08:48 MCV 82.2 fL (81.0-99.0) 09/25/18 08:48 MCH 27.1 pg (27.0-31.0) 09/25/18 08:48 MCHC 33.0 g/dL (33.0-37.0) 09/25/18 08:48 RDW 13.3 % (11.5-14.5) 09/25/18 08:48 Plt Count 193 K/uL (130-400) 09/25/18 08:48 MPV 9.4 fL (7.2-11.7) 09/25/18 08:48 Neut % (Auto) 60.9 % (50.0-75.0) 09/25/18 08:48 Lymph % (Auto) 26.2 % (20.0-40.0) 09/25/18 08:48 [place] % (Auto) 12.4 % (0.0-10.0) H 09/25/18 08:48 Eos % (Auto) 0.2 % (0.0-4.0) 09/25/18 08:48 Baso % (Auto) 0.3 % (0.0-2.0) 09/25/18 08:48 Neut # (Auto) 5.1 K/uL (1.8-7.0) 09/25/18 08:48 Lymph # (Auto) 2.2 K/uL (1.0-4.3) 09/25/18 08:48 [place] # (Auto) 1.0 K/uL (0.0-0.8) H 09/25/18 08:48 Eos # (Auto) 0.0 K/uL (0.0-0.7) 09/25/18 08:48 Baso # (Auto) 0.0 K/uL (0.0-0.2) 09/25/18 08:48 PT 12.7 SECONDS (9.7-12.2) H 09/24/18 01:05 INR 1.2 09/24/18 01:05 APTT 33 SECONDS (21-34) 09/24/18 01:05 Sodium 134 mmol/L (132-148) 09/25/18 08:48 Potassium 3.4 mmol/L (3.6-5.2) L 09/25/18 08:48 Chloride 100 mmol/L (98-107) 09/25/18 08:48 Carbon Dioxide 28 mmol/L (22-30) 09/25/18 08:48 Anion Gap 9 (10-20) L 09/25/18 08:48 BUN 9 mg/dL (7-17) 09/25/18 08:48 Creatinine 0.8 mg/dL (0.7-1.2) 09/25/18 08:48 Est GFR ( Amer) > 60 09/25/18 08:48 Est GFR (Non-Af Amer) > 60 09/25/18 08:48 Random Glucose 117 mg/dL (65-105) H 09/25/18 08:48 Calcium 8.7 mg/dl (8.6-10.4) 09/25/18 08:48 Total Bilirubin 0.5 mg/dL (0.2-1.3) 09/25/18 08:48 AST 18 U/L (14-36) 09/25/18 08:48 ALT 12 U/L (9-52) 09/25/18 08:48 Alkaline Phosphatase 84 U/L (38-126) 09/25/18 08:48 Total Creatine Kinase 39 U/L (30-135) 09/24/18 11:33 CK-MB (Mass) < 0.22 ng/mL (0.0-3.38) 09/24/18 11:33 Troponin I < 0.0120 ng/mL (0.00-0.120) 09/25/18 16:50 NT-Pro-B Natriuret Pep 114 pg/mL (0-900) 09/24/18 01:05 Total Protein 7.7 g/dL (6.3-8.3) 09/25/18 08:48 Albumin 4.1 g/dL (3.5-5.0) 09/25/18 08:48 Globulin 3.5 gm/dL (2.2-3.9) 09/25/18 08:48 Albumin/Globulin Ratio 1.2 (1.0-2.1) 09/25/18 08:48 Lipase 25 U/L (23-300) 09/24/18 01:05 Urine Color Yellow (YELLOW) 09/24/18 16:30 Urine Clarity Clear (Clear) 09/24/18 16:30 Urine pH 5.0 (5.0-8.0) 09/24/18 16:30 Ur Specific [place] 1.017 (1.003-1.030) 09/24/18 16:30 Urine Protein Negative mg/dL (NEGATIVE) 09/24/18 16:30 Urine Glucose (UA) Normal mg/dL (Normal) 09/24/18 16:30 Urine Ketones Negative mg/dL (NEGATIVE) 09/24/18 16:30 Urine Blood Negative (NEGATIVE) 09/24/18 16:30 Urine Nitrate Negative (NEGATIVE) 09/24/18 16:30 Urine Bilirubin Negative (NEGATIVE) 09/24/18 16:30 Urine Urobilinogen Normal mg/dL (0.2-1.0) 09/24/18 16:30 Ur Leukocyte Esterase Neg Carmen/uL (Negative) 09/24/18 16:30 Urine WBC (Auto) < 1 /hpf (0-5) 09/24/18 16:30 Urine RBC (Auto) 1 /hpf (0-3) 09/24/18 16:30 Urine Bacteria Rare (<OCC) 09/24/18 16:30 Anti-Cardiolipin IgG Ab <14 GPL (<=14) 09/26/18 08:08 Anti-Cardiolipin IgM Ab <12 MPL (<=12) 09/26/18 08:08 Influenza Typ A,B (EIA) Negative for flu a/b (NEGATIVE) 09/24/18 01:10 Discharge Exam - Head Exam Head Exam: NORMOCEPHALIC - Eye Exam Eye Exam: Normal appearance Pupil Exam: NORMAL ACCOMODATION - ENT Exam ENT Exam: Normal Oropharynx - Neck Exam Neck exam: Normal Inspection - Respiratory Exam Respiratory Exam: Decreased Breath Sounds - Cardiovascular Exam Cardiovascular Exam: REGULAR RHYTHM - GI/Abdominal Exam GI & Abdominal Exam: Normal Bowel Sounds - Rectal Exam Rectal Exam: Deferred - Exam External exam: NORMAL EXTERNAL EXAM - Extremities Exam Extremities exam: tenderness - Neurological Exam Neurological exam: Oriented x3 - Psychiatric Exam Psychiatric exam: Depressed - Skin Skin Exam: Dry Discharge Plan - Discharge Medications Prescriptions: Fluticasone Propionate [Flonase] 1 spr NS BID #1 bottle Methylprednisolone [Medrol Dose Pack (21 tabs)] 4 mg PO DAILY #21 mg Metoprolol Succinate XL [Toprol XL] 25 mg PO DAILY 30 Days tab Azithromycin [Z-Ta] 250 mg PO DAILY #6 tab - Follow Up Plan Condition: FAIR Disposition: HOME/ ROUTINE Instructions: Azithromycin (Systemic), Migraine Headache (DC), Chest Pain (DC), Methylprednisolone, Metoprolol, Fluticasone (Nasal), Pneumonitis (DC) Additional Instructions: FOLLOW UP WITH DR RUIZ IN HIS OFFICE -----CALL FOR APPOINTMENT FOLLOW UP WITH DR PITTS IN HIS OFFICE -----CALL FOR APPOINTMENT FOLLOW UP WITH DR CAPUTO IN HIS OFFICE -----CALL FOR APPOITMEMNT CONTINUE HOME MEDICATION NEW PRESCRIPTION GIVEN TROPOL XL 25 MG PO DAILY [facility] DIRECTED MEDROL DOSE PACK INSTRUCTED FLONASE ACTIVITY TOLERATED CALL DR RUIZ OR GO TO THE EMERGENCY ROOM IF SYMPTOM RETURN OR WORSENING Referrals: Angelo Ruiz MD [Staff Provider] - Yann Caputo MD [Staff Provider] - Rolly Pitts MD [Staff Provider] -
== END 2018-09-27 16:46 | disposition home or self-care (01) | DRG 195 ==
LOC: C.ER 00:01 → C.5S 05:50 → OBSVTOIN 09-26 15:05
PROVIDERS: ADMIT Internal Medicine; ATTEND Internal Medicine
DX: J18.9 Pneumonia, unspecified organism (principal); R07.89 Other chest pain; M75.52 Bursitis of left shoulder; R91.8 Other nonspecific abnormal finding of lung field; I11.9 Hypertensive heart disease without heart failure; I51.7 Cardiomegaly; G43.909 Migraine, unspecified, not intractable, without status migrainosus